=== PATIENT | female | born 2000 | race Caucasian/White ===

== ENCOUNTER 2022-06-16 10:01 | Observation (INO) | payer BC ==
[2022-06-15 13:11] VITALS: BMI 39.5
[2022-06-16] MEDS ORDERED: Lidocaine 1% (PF) 30 ML VIAL ONE (10:17)
[2022-06-16] MEDS ORDERED: EPINEPHrine 1 MG/ML AMP ONE (10:17)
[2022-06-16] MEDS ORDERED: Midazolam HCl 2 mg/2 ml Vial ONE (10:23)
[2022-06-16] MEDS ORDERED: Lidocaine 4% Topical Sol 50 ML BOT ONE (10:23)
[2022-06-16] MEDS ORDERED: fentaNYL Citrate/PF 100 MCG/2 ML SYRINGE ONE (10:24)
[2022-06-16] MEDS ORDERED: HYDROmorphone 0.5 MG/0.5 ML SYRINGE ONE ×2 (10:24→12:21)
[2022-06-16] MEDS ORDERED: Dexamethasone 20 MG/5 ML VIAL ONE (10:39)
[2022-06-16] MEDS ORDERED: PHENYLEPHRINE-NS 100 MCG/ML 10 ML SYRINGE ONE (10:39)
[2022-06-16] MEDS ORDERED: Glycopyrrolate 0.2 MG/ML 5 ML SYRINGE ONE (10:39)
[2022-06-16] MEDS ORDERED: Rocuronium Bromide 10 MG/ML (10ML VIAL) ONE (10:39)
[2022-06-16] MEDS ORDERED: PROPOFOL 200 MG/20 ML VIAL ONE (10:39)
[2022-06-16] MEDS ORDERED: NEOSTIGMINE 3 MG/3 ML SYR 3 MG/3 ML SYRINGE ONE (10:39)
[2022-06-16] MEDS ORDERED: Ketorolac Tromethamine 30 MG/ML VIAL ONE (10:39)
[2022-06-16] MEDS ORDERED: Ondansetron PF 4 MG/2 ML Vial ONE (10:39)
[2022-06-16] MEDS ORDERED: HYDROmorphone 2 MG/ML VIAL ONE (14:36)
[2022-06-16] MEDS ORDERED: Morphine 4 MG/ML VIAL SLOW IVP PRN (15:26)
[2022-06-16] MEDS ORDERED: FENTANYL 50 MCG/ML VIAL 50 MCG/ML VIAL ONE ×2 (16:20→17:05)
[2022-06-16] MEDS: HYDROcodone/Acetaminophen 5/325 mg Tablet PO PRN (20:21)
[2022-06-16] MEDS: Lactated Ringer's 1,000 ML IV SCH (20:21)
[2022-06-16] MEDS: Docusate 100 MG CAP PO SCH (20:21)
[2022-06-17] MEDS: HYDROcodone/Acetaminophen 5/325 mg Tablet PO PRN ×2 (01:04→05:10)
[2022-06-17] MEDS: Lactated Ringer's 1,000 ML IV SCH ×2 (04:22→12:28)
[2022-06-17 07:43] VITALS: BP 131/80; TEMP 97.6
[2022-06-17] MEDS: Docusate 100 MG CAP PO SCH (07:53)
== END 2022-06-17 12:59 | disposition home or self-care (01) ==
LOC: SDC 10:01 → MSONC 18:23
PROVIDERS: ADMIT Student in an Organized Health Care Education/Training Program; ATTEND Student in an Organized Health Care Education/Training Program
PROC: 0GTJ0ZZ Resection of Thyroid Gland Isthmus, Open Approach (ICD-10-PCS; principal; 2022-06-16)
PROC: 0GTH0ZZ Resection of Right Thyroid Gland Lobe, Open Approach (ICD-10-PCS; 2022-06-16)
DX: C73 Malignant neoplasm of thyroid gland (principal); C77.0 Secondary and unspecified malignant neoplasm of lymph nodes of head, face and neck; E03.9 Hypothyroidism, unspecified; E04.2 Nontoxic multinodular goiter; K21.9 Gastro-esophageal reflux disease without esophagitis; E66.9 Obesity, unspecified; Z68.39 Body mass index [BMI] 39.0-39.9, adult; Z86.16 Personal history of COVID-19; Z87.891 Personal history of nicotine dependence; Z79.890 Hormone replacement therapy; Z79.899 Other long term (current) drug therapy; Z88.6 Allergy status to analgesic agent
CPT/HCPCS: 88307; 88341; 88342; 96374; C1713; C1776; G0378; J0171; J1100; J1170; J1885; J2001; J2250; J2270; J2405; J2704; J7120

== ENCOUNTER 2022-07-21 13:45 | Outpatient (CLI) | payer BC ==
[2022-07-21 15:00] LABS: BHCG - Serum Negative (NEGATIVE); Pregs Control Background? CLEAR/WHITE (CLR/WHITE); Pregs Control Bar Appear? YES (CONTROL BAR)
== END 2022-07-21 13:46 | disposition home or self-care (01) ==
LOC: LABBT 13:45
PROVIDERS: ATTEND Student in an Organized Health Care Education/Training Program
DX: Z01.812 Encounter for preprocedural laboratory examination (principal); C73 Malignant neoplasm of thyroid gland; R53.83 Other fatigue; E06.3 Autoimmune thyroiditis; L98.9 Disorder of the skin and subcutaneous tissue, unspecified; E04.1 Nontoxic single thyroid nodule; M54.2 Cervicalgia; R63.5 Abnormal weight gain
CPT/HCPCS: 84703; 85014

== ENCOUNTER 2022-07-28 08:05 | Observation (INO) | payer BC ==
[2022-07-28] MEDS ORDERED: Lidocaine 1% (PF) 30 ML VIAL ONE ×2 (08:48→09:36)
[2022-07-28] MEDS ORDERED: EPINEPHrine 1 MG/ML AMP ONE ×2 (08:48→09:36)
[2022-07-28] MEDS ORDERED: HYDROmorphone 0.5 MG/0.5 ML SYRINGE ONE ×2 (08:52→10:48)
[2022-07-28] MEDS ORDERED: Midazolam HCl 2 mg/2 ml Vial ONE (08:52)
[2022-07-28] MEDS ORDERED: fentaNYL PF 100 MCG/2 ML SYRINGE ONE (08:52)
[2022-07-28] MEDS ORDERED: CEFAZOLIN 2 GM VIAL ONE (09:23)
[2022-07-28] MEDS ORDERED: Sodium Chloride 0.9% 100 ML ONE (09:23)
[2022-07-28 09:34] LABS: SARS-CoV-2 NAA Rapid Test Not Detected (NotDetected)
[2022-07-28] MEDS ORDERED: PROPOFOL 200 MG/20 ML VIAL ONE (09:34)
[2022-07-28] MEDS ORDERED: Dexamethasone 20 MG/5 ML VIAL ONE (09:34)
[2022-07-28] MEDS ORDERED: NEOSTIGMINE 3 MG/3 ML SYR 3 MG/3 ML SYRINGE ONE (09:34)
[2022-07-28] MEDS ORDERED: Ondansetron PF 4 MG/2 ML Vial ONE ×2 (09:34→14:34)
[2022-07-28] MEDS ORDERED: Rocuronium Bromide 10 MG/ML (10ML VIAL) ONE (09:34)
[2022-07-28] MEDS ORDERED: Bacitracin Zinc Ointment 30 gm TUBE ONE (09:36)
[2022-07-28] MEDS ORDERED: Oxymetazoline HCl 0.05% (30 ML BOT) ONE (09:36)
[2022-07-28] MEDS ORDERED: Triamcinolone 40 MG/ML VIAL ONE (09:37)
[2022-07-28] MEDS ORDERED: Promethazine HCl 25 MG/ML VIAL IM PRN (10:05)
[2022-07-28] MEDS ORDERED: Promethazine HCl 25 MG/ML VIAL IVPB PRN (10:05)
[2022-07-28] MEDS ORDERED: Ondansetron HCl/PF 4 MG/2 ML Vial IVP PRN (10:05)
[2022-07-28] MEDS: Lactated Ringer's 1,000 ML IV SCH ×2 (13:55→21:38)
[2022-07-28] MEDS ORDERED: FENTANYL 50 MCG/ML 1 ML VIAL ONE ×4 (13:56→20:01)
[2022-07-28] MEDS ORDERED: Morphine 4 MG/ML VIAL SLOW IVP PRN (13:59)
[2022-07-28] MEDS ORDERED: Ondansetron PF 4 MG/2 ML Vial IVP PRN (14:00)
[2022-07-28] MEDS: Calcium Carbonate 500 MG ChewTAB PO SCH ×2 (14:45→21:38)
[2022-07-28] MEDS ORDERED: HYDROcodone/Acetaminophen 5/325 mg Tablet ONE (16:40)
[2022-07-28] MEDS: HYDROcodone/Acetaminophen 5/325 mg Tablet PO PRN ×2 (16:41→21:43)
[2022-07-28 20:30] VITALS: BMI 41.1
[2022-07-28] MEDS: Calcitriol 0.25 MCG CAP PO SCH (21:37)
[2022-07-28] MEDS: Docusate 100 MG CAP PO SCH (21:38)
[2022-07-29] MEDS: Lactated Ringer's 1,000 ML IV SCH (06:32)
[2022-07-29] MEDS: HYDROcodone/Acetaminophen 5/325 mg Tablet PO PRN (07:00)
[2022-07-29 07:25] VITALS: BP 136/89; TEMP 98.3
[2022-07-29] MEDS: Calcium Carbonate 500 MG ChewTAB PO SCH (08:12)
[2022-07-29] MEDS: Calcitriol 0.25 MCG CAP PO SCH (08:12)
[2022-07-29] MEDS: Docusate 100 MG CAP PO SCH (08:12)
[2022-07-29] MEDS ORDERED: FLU VACC QS2022-23(6MOS UP)/PF 60 MCG/0.5 ML SYRINGE IM ONE (09:00)
== END 2022-07-29 10:21 | disposition home or self-care (01) ==
LOC: SDC 08:05 → SURG A 20:22
PROVIDERS: ADMIT Student in an Organized Health Care Education/Training Program; ATTEND Student in an Organized Health Care Education/Training Program
PROC: 0GTG0ZZ Resection of Left Thyroid Gland Lobe, Open Approach (ICD-10-PCS; principal; 2022-07-28)
DX: E06.5 Other chronic thyroiditis (principal); E04.2 Nontoxic multinodular goiter; E89.0 Postprocedural hypothyroidism; E66.9 Obesity, unspecified; Z68.41 Body mass index [BMI] 40.0-44.9, adult; Z87.891 Personal history of nicotine dependence; Z79.890 Hormone replacement therapy; Z79.899 Other long term (current) drug therapy; Z88.6 Allergy status to analgesic agent; Z20.822 Contact with and (suspected) exposure to COVID-19
CPT/HCPCS: 36415; 82310; 83970; 88307; 90471; 90686; C1776; G0008; G0378; J0171; J1100; J1170; J2001; J2250; J2405; J2704; J3010; J3301; J3490; J7120; J7643; U0002

== ENCOUNTER 2022-11-19 11:57 | Outpatient (CLI) | payer BC ==
[2022-11-19 12:26] LABS: BHCG - Serum Negative (NEGATIVE); Pregs Control Background? CLEAR/WHITE (CLR/WHITE); Pregs Control Bar Appear? YES (CONTROL BAR)
== END 2022-11-19 11:58 | disposition home or self-care (01) ==
LOC: NM 11:57
PROVIDERS: ATTEND Internal Medicine Endocrinology, Diabetes & Metabolism
DX: Z32.00 Encounter for pregnancy test, result unknown (principal); C73 Malignant neoplasm of thyroid gland
CPT/HCPCS: 79005; 84703; A9517

== ENCOUNTER 2022-11-30 13:59 | Outpatient (CLI) | payer BC | END 2022-11-30 14:00 | disposition home or self-care (01) | LOC: NM 13:59 | PROVIDERS: ATTEND Internal Medicine Endocrinology, Diabetes & Metabolism | DX: C73 Malignant neoplasm of thyroid gland (principal); R94.8 Abnormal results of function studies of other organs and systems | CPT/HCPCS: 78018 ==